=== PATIENT | female | born 1955 | race Caucasian/White ===

== ENCOUNTER 2018-10-02 15:50 | Emergency (ER) | payer OTHER | END 2018-10-02 16:30 | disposition home or self-care (01) | LOC: JERFT 15:50 ==

== ENCOUNTER 2020-10-16 10:27 | Emergency (ER) | payer OTHER ==
[2020-10-16 10:33] VITALS: BP 132/85; PULSE 78; TEMP 97.8; BMI 30.3
== END 2020-10-16 10:59 | disposition home or self-care (01) ==
LOC: JERFT 10:27
DX: L03.116 Cellulitis of left lower limb (principal)
CPT/HCPCS: 99283-25

== ENCOUNTER 2021-02-17 04:41 | Day surgery (SDC) | payer BC ==
[2021-02-11 16:35] VITALS: BMI 30.9
[2021-02-17 10:30] VITALS: TEMP 97.5
[2021-02-17 12:01] VITALS: BP 122/65; PULSE 72
== END 2021-02-17 11:20 | disposition home or self-care (01) ==
LOC: JASU-ENDO 04:41
PROVIDERS: ATTEND Internal Medicine Gastroenterology
PROC: 0DB68ZX Excision of Stomach, Via Natural or Artificial Opening Endoscopic, Diagnostic (ICD-10-PCS; 2021-02-17)
PROC: 0DB28ZX Excision of Middle Esophagus, Via Natural or Artificial Opening Endoscopic, Diagnostic (ICD-10-PCS; 2021-02-17)
PROC: 0DB48ZX Excision of Esophagogastric Junction, Via Natural or Artificial Opening Endoscopic, Diagnostic (ICD-10-PCS; principal; 2021-02-17 10:00)
DX: R13.10 Dysphagia, unspecified (principal); K21.00 Gastro-esophageal reflux disease with esophagitis, without bleeding; K44.9 Diaphragmatic hernia without obstruction or gangrene; K22.2 Esophageal obstruction; K25.9 Gastric ulcer, unspecified as acute or chronic, without hemorrhage or perforation; K29.50 Unspecified chronic gastritis without bleeding